=== PATIENT | male | born 1965 | race Caucasian/White ===

== ENCOUNTER 2020-08-19 22:33 | Inpatient (IN) | payer OTHER, SELFPAY ==
[2020-08-19 23:07] VITALS: BMI 37.7
[2020-08-19 23:11] VITALS: BP 140/67; PULSE 66; RESP 18; TEMP 37.2; O2SAT 96
[2020-08-20] MEDS: Multivitamin TABLET 1 TAB PO ×2 (00:52→22:49)
[2020-08-20] MEDS: LORazepam 1 MG TABLET PO (00:52)
[2020-08-20] MEDS: Folic Acid 1 MG TABLET PO ×2 (00:52→08:54)
[2020-08-20 04:06] VITALS: BMI 26.5
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
[2020-08-20 06:15] VITALS: BP 122/72; PULSE 67; RESP 16; TEMP 36.8; O2SAT 98
--- NOTE | 2020-08-20 07:00 | ECG_ITS ---
Test Reason : CHEST PAIN Blood Pressure : / mmHG Vent. Rate : 063 BPM Atrial Rate : 063 BPM P-R Int : 150 ms QRS Dur : 100 ms QT Int : 440 ms P-R-T Axes : 022 -10 077 degrees QTc Int : 450 ms Normal sinus rhythm Nonspecific ST and T wave abnormality Abnormal ECG No previous ECGs available Referred By: Donovan Villela Electronically Signed By:DESTINY SPRAGUE
[2020-08-20 08:54] VITALS: BP 122/72; PULSE 67
[2020-08-20] MEDS: lisinopriL 5 MG TABLET PO (08:54)
[2020-08-20] MEDS: DULoxetine HCl 30 MG CAPSULE.DR PO (08:54)
[2020-08-20] MEDS: Gabapentin 100 MG CAPSULE 200 MG PO ×3 (08:54→22:49)
[2020-08-20] MEDS: Tamsulosin HCL 0.4 MG CAPSULE PO ×2 (08:54→18:26)
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
[2020-08-20 09:27] VITALS: BP 122/72; PULSE 67
[2020-08-20] MEDS: Levothyroxine Sodium 150 MCG TABLET PO (09:27)
[2020-08-20] MEDS: Magnesium Oxide 400 MG TABLET PO ×2 (09:27→22:49)
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
--- NOTE | 2020-08-20 14:34 | PC.NURSE ---
Pt participated in [facility] screen on this date (version 7.1), scored 28/30, indicating cognition is within normal limits. MD pandya
[2020-08-20 18:00] VITALS: BP 117/58; PULSE 64; TEMP 36.6
[2020-08-21] MEDS: Levothyroxine Sodium 150 MCG TABLET PO (06:38)
[2020-08-21 07:00] VITALS: BP 117/58; PULSE 61; RESP 18; TEMP 37
[2020-08-21 08:57] LABS: Alanine Aminotransferase 21 U/L (0-40); Albumin Level 3.1 g/dL (3.5-5.0); Alkaline Phosphatase 112 U/L (39-117); Aspartate Amino Transferase 64 U/L (5-37); Bilirubin Direct 1.1 mg/dL (0.0-0.5); Total Protein 6.5 g/dL (6.5-8.0)
[2020-08-21 09:29] VITALS: BP 117/58; PULSE 61
[2020-08-21] MEDS: lisinopriL 5 MG TABLET PO (09:29)
[2020-08-21] MEDS: Multivitamin TABLET 1 TAB PO (09:30)
[2020-08-21] MEDS: Folic Acid 1 MG TABLET PO (09:30)
[2020-08-21] MEDS: Magnesium Oxide 400 MG TABLET PO ×2 (09:30→20:48)
[2020-08-21] MEDS: DULoxetine HCl 60 MG CAPSULE.DR PO (09:30)
[2020-08-21] MEDS: Gabapentin 100 MG CAPSULE 200 MG PO ×3 (09:30→20:48)
--- NOTE | 2020-08-21 12:23 | P.EN_ITS ---
Event Note Date of Service: 08/21/20
--- NOTE | 2020-08-21 12:23 | PM.EVENT ---
Event Note Date of Service: 08/21/20
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
[2020-08-21 18:00] VITALS: BP 117/83; TEMP 36.4
--- NOTE | 2020-08-21 18:49 | P.PNPSI_ITS ---
Subjective Subjective Date of Service: 08/21/20 Reason For Visit: Major Depressive Disorder Subjective Notes: Conditional Voluntary Interim History: Craig was brighter and more engaged today. He denied SI and stated his mood was better. He is more committed to stop drinking. He is unsure about using PHP. Medication Compliance: Yes Side effects from medications: No Attending Groups: Yes Review of Systems Acute medical concerns: No Medical Review of Systems: unchanged Mental Status Exam Mental Status Exam Patient Appearance: Well Grooomed Patient Orientation: Person, Place and Time Level of Consciousness: Awake Patient Behavior: Appropriate and Good Eye Contact Mood Description: Anxious and Sad Affect Description: Anxious, Flat and Sad Ability to Follow Directions: Good Speech Pattern: Clear and Spontaneous Speech Memory Description: Intact Hallucinations: None Delusions: Not Present Thought Process: Intact Thought Content: positive for Intact, positive for Circumstantial, positive for Perseveration, negative for Suicidal Ideation and negative for Homicidal Ideation Depressive Symptoms: Insomnia, Increased Irritability and Loss of Energy Judgement: Fair Diagnostics Vital Signs (24Hr): Vital Signs - 24 hr 08/21/20 07:00 08/21/20 09:29 Temperature 98.6 F Pulse Rate 61 61 Respiratory Rate 18 Blood Pressure 117/58 L 117/58 L Body Mass Index 26.5 Labs Labs: Laboratory Results - last 48 hr 08/21/20 07:58 Total Bilirubin 2.0 H Direct Bilirubin 1.1 H AST 64 H ALT 21 Alkaline Phosphatase 112 Total Protein 6.5 Albumin 3.1 L Medications Medications Current Medications Generic Name Dose Route Start Last Admin Trade Name Freq PRN Reason Stop Dose Admin Acetaminophen 650 mg 08/20/20 07:15 Acetaminophen 325 Mg Tablet PO Q6H PRN Headache/Pain Mild Scale (1-3) Al Hydroxide/Mg Hydroxide 30 ml 08/20/20 07:15 Magnesium Hydrox/Alum Hydrox 30 Ml Oral.Susp PO Q6H PRN Heartburn/Nausea Docusate Sodium 100 mg 08/20/20 07:18 Docusate Sodium 100 Mg Capsule PO DAILY PRN Constipation Duloxetine HCl 60 mg 08/21/20 09:00 08/21/20 09:30 Duloxetine Hcl 60 Mg Capsule.Dr PO 60 mg DAILY JOSE MARIA Administration Folic Acid 1 mg 08/19/20 23:45 08/21/20 09:30 Folic Acid 1 Mg Tablet PO 1 mg DAILY JOSE MARIA Administration Gabapentin 200 mg 08/20/20 09:00 08/21/20 14:39 Gabapentin 100 Mg Capsule PO 200 mg TID JOSE MARIA Administration Hydroxyzine HCl 25 mg 08/20/20 07:15 Hydroxyzine Hcl 25 Mg Tablet PO BEDTIME PRN Anxiety Levothyroxine Sodium 150 mcg 08/20/20 09:00 08/21/20 06:38 Levothyroxine Sodium 150 Mcg Tablet PO 150 mcg DAILY@0600 [facility] Administration Lisinopril 5 mg 08/20/20 09:00 08/21/20 09:29 Lisinopril 5 Mg Tablet PO 5 mg DAILY [facility] Administration Protocol Lorazepam 1 mg 08/19/20 23:29 08/20/20 00:52 Lorazepam 1 Mg Tablet PO 1 mg Q4H PRN Administration Alcohol Withdrawal Magnesium Hydroxide 30 ml 08/20/20 07:15 Milk Of Magnesia 30 Ml Oral.Susp PO DAILY PRN Constipation Magnesium Oxide 400 mg 08/20/20 09:00 08/21/20 09:30 Magnesium Oxide 400 Mg Tablet PO 400 mg BID JOSE MARIA Administration Multivitamins/Vitamin C 1 tab 08/20/20 23:23 08/21/20 09:30 Multivitamin Tablet PO 1 tab DAILY [facility] Administration Nadolol 40 mg 08/20/20 09:00 08/21/20 09:29 Nadolol 40 Mg Tablet PO 40 mg DAILY [facility] Administration Protocol Non-Formulary Medication 100 mg 08/20/20 07:18 Sildenafil [Viagra] PO DAILY PRN Erectile Dysfunction Tamsulosin HCl 0.4 mg 08/20/20 09:00 08/20/20 18:26 Tamsulosin Hcl 0.4 Mg Capsule PO 0.4 mg DAILY@1700 [facility] Administration Trazodone HCl 50 mg 08/20/20 07:15 Trazodone Hcl 50 Mg Tablet PO BEDTIME PRN Insomnia Allergies Allergies Allergy/AdvReac Type Severity Reaction Status Date / Time codeine Allergy Vomiting Verified 08/19/20 23:17 Assessment & Plan Assessment & Plan (1) Major depressive disorder, recurrent severe without psychotic features: Status: Acute Code(s): F33.2 - Major depressive disorder, recurrent severe without psychotic features Assessment and Plan: CT current treatment plan Greater than 50% of the session was spent on counseling and/or coordination of care Patient educated on: diagnosis, medication risk/benefits and substance abuse Informed Consent: further education needed Reason for contiued inpatient stay Substantial Risk for: rapid decompensation
[2020-08-21] MEDS: Tamsulosin HCL 0.4 MG CAPSULE PO (19:35)
--- NOTE | 2020-08-22 | MR_ITS ---
EXAMINATION: MR BRAIN WITHOUT CONTRAST CLINICAL INFORMATION: Falls. Episodes of confusion. COMPARISON: None available. TECHNIQUE: MRI of the brain was obtained using routine sequences without contrast. FINDINGS: No focal restricted diffusion is demonstrated to suggest acute or subacute cerebral ischemia. No evidence of acute or chronic hemorrhagic products on heme-sensitive imaging. Nonspecific scattered periventricular, deep white matter, and brainstem T2 FLAIR hyperintensities most commonly seen with moderate underlying microangiopathy proportional prominence of the ventricles and sulcal spaces without evidence of obstructive hydrocephalus. The posterior callosal angle is normal (130 degrees) when measured on a corrected coronal image, orthogonal to the anterior commissure-posterior commissure line. No abnormal mass effect. No midline shift. Normal appearance of the pituitary gland. The cerebellar tonsils are positioned at the level the foramen magnum. Normal arterial and venous vascular flow voids are present. Normal, homogeneous marrow signal. Mild mucosal thickening of the paranasal sinuses. No signal abnormalities within the mastoids. Bilateral lens extractions. MR/MR head/brain wo con IMPRESSION: 1. No acute intracranial abnormalities. 2. Nonspecific moderate chronic white matter disease and generalized cerebral volume loss.
--- NOTE | 2020-08-22 | EEG_ITS ---
This is a 16-channel EEG with an EKG lead. The patient is reported awake during the tracing. Background EEG rhythm is low to medium amplitude fast with no obvious asymmetry or paroxysmal tendency. Photic stimulation does not produce any significant abnormality. Hyperventilation is not performed. No sharp wave spikes or paroxysmal tendencies noted. Cardiac lead does not reveal any significant abnormality. IMPRESSION: Unremarkable EEG. MD JIMMY Grandaos/ROSALVA / [id number]
[2020-08-22 06:00] VITALS: BP 143/69; PULSE 62; TEMP 36.9
[2020-08-22] MEDS: Levothyroxine Sodium 150 MCG TABLET PO (06:38)
[2020-08-22 07:00] VITALS: BMI 29.3
[2020-08-22 08:27] VITALS: BP 143/69; PULSE 62
[2020-08-22] MEDS: Magnesium Oxide 400 MG TABLET PO ×2 (08:27→21:02)
[2020-08-22] MEDS: DULoxetine HCl 60 MG CAPSULE.DR PO (08:27)
[2020-08-22] MEDS: lisinopriL 5 MG TABLET PO (08:27)
[2020-08-22] MEDS: Multivitamin TABLET 1 TAB PO (08:27)
[2020-08-22] MEDS: Gabapentin 100 MG CAPSULE 200 MG PO ×3 (08:27→21:02)
[2020-08-22] MEDS: Folic Acid 1 MG TABLET PO (08:55)
--- NOTE | 2020-08-22 09:17 | P.PNPSI_ITS ---
Subjective Subjective Date of Service: 08/22/20 Reason For Visit: Major Depressive Disorder Subjective Notes: Conditional Voluntary Interim History: Craig is feeling significant improvement in his mood. He has no SI. He is hoping to go home tomorrow. He does not want to do PHP. QUINTON spoke with his who is in agreement with his going home. Neurology consult is appreciated. Will get MRI and EEG Medication Compliance: Yes Side effects from medications: No Attending Groups: Yes Review of Systems Acute medical concerns: No Medical Review of Systems: unchanged Mental Status Exam Mental Status Exam Patient Appearance: Well Grooomed Patient Orientation: Person, Place and Time Level of Consciousness: Awake Patient Behavior: Appropriate and Good Eye Contact Mood Description: Anxious and Sad Affect Description: Anxious, Flat and Sad Ability to Follow Directions: Good Speech Pattern: Clear and Spontaneous Speech Memory Description: Intact Hallucinations: None Delusions: Not Present Thought Process: Intact Thought Content: positive for Intact, positive for Circumstantial, positive for Perseveration, negative for Suicidal Ideation and negative for Homicidal Ideation Depressive Symptoms: Insomnia Judgement: Fair Diagnostics Vital Signs (24Hr): Vital Signs - 24 hr 08/21/20 09:29 08/21/20 18:00 08/22/20 06:00 Temperature 97.6 F 98.5 F Pulse Rate 61 62 Blood Pressure 117/58 L 117/83 143/69 H 08/22/20 08:27 Temperature Pulse Rate 62 Blood Pressure 143/69 H Body Mass Index 29.3 Labs Labs: Laboratory Results - last 48 hr 08/21/20 07:58 Total Bilirubin 2.0 H Direct Bilirubin 1.1 H AST 64 H ALT 21 Alkaline Phosphatase 112 Total Protein 6.5 Albumin 3.1 L Medications Medications Current Medications Generic Name Dose Route Start Last Admin Trade Name Freq PRN Reason Stop Dose Admin Acetaminophen 650 mg 08/20/20 07:15 Acetaminophen 325 Mg Tablet PO Q6H PRN Headache/Pain Mild Scale (1-3) Al Hydroxide/Mg Hydroxide 30 ml 08/20/20 07:15 Magnesium Hydrox/Alum Hydrox 30 Ml Oral.Susp PO Q6H PRN Heartburn/Nausea Docusate Sodium 100 mg 08/20/20 07:18 Docusate Sodium 100 Mg Capsule PO DAILY PRN Constipation Duloxetine HCl 60 mg 08/21/20 09:00 08/22/20 08:27 Duloxetine Hcl 60 Mg Capsule.Dr PO 60 mg DAILY JOSE MARIA Administration Folic Acid 1 mg 08/19/20 23:45 08/22/20 08:55 Folic Acid 1 Mg Tablet PO 1 mg DAILY JOSE MARIA Administration Gabapentin 200 mg 08/20/20 09:00 08/22/20 08:27 Gabapentin 100 Mg Capsule PO 200 mg TID JOSE MARIA Administration Hydroxyzine HCl 25 mg 08/20/20 07:15 Hydroxyzine Hcl 25 Mg Tablet PO BEDTIME PRN Anxiety Levothyroxine Sodium 150 mcg 08/20/20 09:00 08/22/20 06:38 Levothyroxine Sodium 150 Mcg Tablet PO 150 mcg DAILY@0600 [facility] Administration Lisinopril 5 mg 08/20/20 09:00 08/22/20 08:27 Lisinopril 5 Mg Tablet PO 5 mg DAILY [facility] Administration Protocol Lorazepam 1 mg 08/19/20 23:29 08/20/20 00:52 Lorazepam 1 Mg Tablet PO 1 mg Q4H PRN Administration Alcohol Withdrawal Magnesium Hydroxide 30 ml 08/20/20 07:15 Milk Of Magnesia 30 Ml Oral.Susp PO DAILY PRN Constipation Magnesium Oxide 400 mg 08/20/20 09:00 08/22/20 08:27 Magnesium Oxide 400 Mg Tablet PO 400 mg BID [facility] Administration Multivitamins/Vitamin C 1 tab 08/20/20 23:23 08/22/20 08:27 Multivitamin Tablet PO 1 tab DAILY [facility] Administration Nadolol 40 mg 08/20/20 09:00 08/22/20 08:27 Nadolol 40 Mg Tablet PO 40 mg DAILY [facility] Administration Protocol Non-Formulary Medication 100 mg 08/20/20 07:18 Sildenafil [Viagra] PO DAILY PRN Erectile Dysfunction Tamsulosin HCl 0.4 mg 08/20/20 09:00 08/21/20 19:35 Tamsulosin Hcl 0.4 Mg Capsule PO 0.4 mg DAILY@1700 [facility] Administration Trazodone HCl 50 mg 08/20/20 07:15 Trazodone Hcl 50 Mg Tablet PO BEDTIME PRN Insomnia Allergies Allergies Allergy/AdvReac Type Severity Reaction Status Date / Time codeine Allergy Vomiting Verified 08/19/20 23:17 Assessment & Plan Assessment & Plan (1) Major depressive disorder, recurrent severe without psychotic features: Status: Acute Code(s): F33.2 - Major depressive disorder, recurrent severe without psychotic features Assessment and Plan: CT current treatment plan. Anticipate DC tomorrow Greater than 50% of the session was spent on counseling and/or coordination of care Patient educated on: diagnosis, medication risk/benefits and substance abuse Informed Consent: understands Reason for contiued inpatient stay Substantial Risk for: rapid decompensation
[2020-08-22 17:51] VITALS: BP 155/81; PULSE 59; TEMP 36.9
[2020-08-22 18:00] VITALS: BP 155/81; PULSE 59; TEMP 36.9
[2020-08-22] MEDS: Tamsulosin HCL 0.4 MG CAPSULE PO (18:55)
[2020-08-23 05:55] VITALS: BP 144/78; PULSE 65; RESP 16; TEMP 36.6; O2SAT 97
[2020-08-23] MEDS: Levothyroxine Sodium 150 MCG TABLET PO (05:58)
[2020-08-23 08:30] VITALS: BP 144/78; PULSE 65
[2020-08-23] MEDS: Gabapentin 100 MG CAPSULE 200 MG PO (08:30)
[2020-08-23] MEDS: Folic Acid 1 MG TABLET PO (08:30)
[2020-08-23] MEDS: Magnesium Oxide 400 MG TABLET PO (08:30)
[2020-08-23] MEDS: DULoxetine HCl 60 MG CAPSULE.DR PO (08:30)
[2020-08-23] MEDS: Multivitamin TABLET 1 TAB PO (08:30)
[2020-08-23] MEDS: lisinopriL 5 MG TABLET PO (08:30)
--- NOTE | 2020-08-23 11:06 | PM.PSYDC ---
DS: Providers Provider Date of admission: 08/19/20 22:33 Date of discharge: 08/23/20 Primary care physician: Ender Acuna MD Attending physician on admission: Una Murray Consults: 08/20/20 07:00 Consult to Hospitalist Routine Consulting Provider: Hospitalist Reason for consultation: Hospital Transfer 08/20/20 13:41 Consult to Neurology Routine Consulting Provider: [facility] Reason for consultation: Frequent falls, memory impairment, by history Attending physician on discharge: Una Murray DS: Diagnosis Discharge Diagnosis (1) Major depressive disorder, recurrent severe without psychotic features: Status: Acute DS: Medications Discharge Medications Home Medications: Home Medications Medication Instructions Recorded Confirmed docusate sodium [Colace] 100 mg PO DAILY PRN 08/20/20 08/20/20 duloxetine [Cymbalta] 30 mg PO DAILY 08/20/20 08/20/20 folic acid [Folvite] 1 mg PO DAILY 08/20/20 08/20/20 gabapentin 200 mg PO TID 08/20/20 08/20/20 levothyroxine 150 mcg PO DAILY 08/20/20 08/20/20 lisinopril 5 mg PO DAILY 08/20/20 08/20/20 magnesium oxide 400 mg PO BID 08/20/20 08/20/20 multivitamin 1 tab PO DAILY 08/20/20 08/20/20 nadolol 40 mg PO DAILY 08/20/20 08/20/20 sildenafil [Viagra] 100 mg PO DAILY PRN 08/20/20 08/20/20 tamsulosin 0.4 mg PO DAILY 08/20/20 08/20/20 thiamine HCl (vitamin B1) 100 mg PO DAILY 08/20/20 08/20/20 Discharge Plan Discharge Patient Disposition: Home, Self-Care Referrals: Katya Bernal (therapist) [Other] - 08/26/20 3:00 pm (Telehealth appointment) Dr. Marks (psychiatrist) [Other] - 10/02/20 10:00 am (Telehealth appointment) Jyoti Crane (therapist) [Other] (Follow up to see if she is taking new clients) Ender Acuna MD [Primary Care Provider] - 08/27/20 3:00 pm (tele health via phone) Yaritza Whitley MD [Physician] - 09/03/20 12:10 pm (IN OFFICE.) Discharge Medications: New duloxetine 60 mg Capsule,Delayed Release(Dr/Ec) 60 mg PO DAILY Qty: 30 RF: 1 Continued thiamine HCl (vitamin B1) 100 mg Tablet 100 mg PO DAILY Qty: 30 RF: 1 multivitamin Tablet 1 tab PO DAILY Qty: 30 RF: 1 sildenafil [Viagra] 100 mg Tablet 100 mg PO DAILY PRN (Reason: Erectile Dysfunction) Qty: 30 RF: 1 tamsulosin 0.4 mg Capsule 0.4 mg PO DAILY Qty: 30 RF: 1 levothyroxine 150 mcg Tablet 150 mcg PO DAILY Qty: 30 RF: 1 docusate sodium [Colace] 100 mg Capsule 100 mg PO DAILY PRN (Reason: Constipation) Qty: 30 RF: 1 nadolol 40 mg Tablet 40 mg PO DAILY Qty: 30 RF: 1 folic acid 1 mg Tablet 1 mg PO DAILY Qty: 30 RF: 1 lisinopril 5 mg Tablet 5 mg PO DAILY Qty: 30 RF: 1 gabapentin 100 mg Capsule 200 mg PO TID Qty: 90 RF: 1 magnesium oxide 400 mg magnesium Tablet 400 mg PO BID Qty: 60 RF: 1 Discontinued duloxetine [Cymbalta] 30 mg Capsule,Delayed Release(Dr/Ec) 30 mg PO DAILY RF: 0 Discharge Orders: Discharge Order (Routine); Ordered 08/23/20 Ordered By: Una Murray Diet: advance to usual diet Activity on Discharge: As tolerated Stand Alone Forms: Community Support Discharge Date/Time: 08/23/20 12:34 Visit Report Forms: Patient Portal Discharge page Care Plan Goals: Decrease depression Remain sober Health Concerns: Depressed mood Alcohol use Plan of Treatment: Stay on your medication Go to your FU appointments Mental Status Exam Mental Status Exam Patient Appearance: Well Grooomed Patient Orientation: Person, Place and Time Level of Consciousness: Awake Patient Behavior: Appropriate and Good Eye Contact Mood Description: Anxious and Sad Affect Description: Anxious, Flat and Sad Ability to Follow Directions: Good Speech Pattern: Clear and Spontaneous Speech Memory Description: Intact Hallucinations: None Delusions: Not Present Thought Process: Intact Thought Content: positive for Intact, positive for Circumstantial, positive for Perseveration, negative for Suicidal Ideation and negative for Homicidal Ideation Depressive Symptoms: Insomnia Judgement: Fair Data Data Completed and Pending Completed studies during hospitalization [Text1]: 08/21/20 07:58 Total Bilirubin 2.0 H Direct Bilirubin 1.1 H AST 64 H ALT 21 Alkaline Phosphatase 112 Total Protein 6.5 Albumin 3.1 L Imaging Diagnostic Imaging Impressions Brain MRI 08/22/20 00:00 IMPRESSION: 1. No acute intracranial abnormalities. 2. Nonspecific moderate chronic white matter disease and generalized cerebral volume loss. DS: Summary Hospital Course Hospital Course: 55 yo white male transferred from [facility]. He was referred because of SI and S/P an OD. This is his first admission to and his second psychiatric admission. Craig was admitted to [facility] on 08/17/20 after making a suicide attempt with quantity 250 tablets of Tylenol 500 mg tabs with 3 glasses of wine. He reports that it was impulsive but that he had hoped he would . He felt that there was a perfect storm of stresses and he could not manage any more. Following the OD he was brought by ambulance to [facility] and then was admitted to telemetry at [facility]. When medically stable he was evaluated by [facility] and referred for admission. Craig cited family stress including 3 children with special needs ages 13 ( shaken baby syndrome ), 17 (cerebral palsy), and 19 (autism, non-verbal). The patient and 13 yo child made threatening statements toward each other. Craig denied intent and said statements were made out of frustration. I sleep with my door locked because I don't know what he'd do. He also cited work stress due to COVID-19 restrictions. In 2019 pt relapsed on ETOH after 10 yrs of sobriety due to work stress involving false accusations of sexual harassment. Reports drinking twice per week since, 4 drinks each time. He denies seizure hx and denies current withdrawal. He did not present with signs of withdrawal at time of assessment. He had been treated for ETOH withdrawal while inpatient at [facility] with Ativan. Pt denied current SI and stated that he was grateful to have survived. My doesn't deserve this. He denied AH/VH/HI. He did not present with signs of psychosis and was calm and cooperative. He has had one IPLOC in 2008 after divorce from first . Agreed to seek staff if having thoughts of SI/HI. He had been started on duloxetine and feels it is somewhat helpful. He is looking for assistance with depression and alcohol use. Craig responded to an increase in duloxetine and the support of the unit. He declined naltrexone but said he had no cravings for alcohol. He had no WD. He was interested in returning to a therapist that he has seen in the past, but did not want to use PHP. QUINTON consulted with his who agreed that he had made a lot of progress and was safe to go home. Status at Discharge Functional status at discharge: independent ambulation Overall status at discharge: patient is progressing back to baseline Time Spent with Patient Time attestation: Total time spent providing and/or coordinating discharge services:
== END 2020-08-23 12:34 | disposition home or self-care (01) | DRG 885 ==
PROVIDERS: Student in an Organized Health Care Education/Training Program; Admitting Provider Psychiatry & Neurology Psychiatry; PCP Internal Medicine; Visit Provider Psychiatry & Neurology Psychiatry
DX: F33.2 Major depressive disorder, recurrent severe without psychotic features (principal); R45.851 Suicidal ideations; E03.9 Hypothyroidism, unspecified; Z89.511 Acquired absence of right leg below knee; Z88.5 Allergy status to narcotic agent; Z79.890 Hormone replacement therapy; Z79.899 Other long term (current) drug therapy
CPT/HCPCS: 70551; 80076; 93005; 95816

== ENCOUNTER 2020-10-23 08:53 | Outpatient (REF) | payer BC, SELFPAY ==
[2020-10-23 10:55] LABS: MANUAL DIFF FLAG NO
[2020-10-23 11:04] LABS: INTERNATIONAL NORM RATIO 1.2 (0.9-1.1); Prothrombin Time 14.1 SEC (10.8-13.0)
[2020-10-23 11:06] LABS: Basophils Percent Auto 0.6 % (0-2); Eosinophils Absolute Auto 0.3 X10*3/uL (0.0-0.4); Eosinophils Percent Auto 4.1 % (0-4); Hematocrit 39.6 % (42-52); Imm Gran Abs Auto 0.02 X10*3/uL (0.00-0.03); Imm Gran Pct Auto 0.3 % (0.0-0.4); Lymphocytes Absolute Auto 1.1 X10*3/uL (1.2-4.9); Lymphocytes Percent Auto 18.2 % (20-40); Mean Corpuscular HGB Conc 32.8 g/dl (31.0-36.0); Mean Corpuscular Volume 103.7 fL (80-98); Mean Platelet Volume 12.2 fL (9.4-12.4); Monocytes Percent Auto 16.4 % (2-11); Neutrophils Absolute Auto 3.7 X10*3/uL (2.0-8.3); Neutrophils Percent Auto 60.4 % (45-73); Platelet Count 120 X10*3/uL (160-400); Red Blood Count 3.82 X10*6/uL (4.60-5.80); Red Cell Distribution Width 13.1 % (11.0-16.0); White Blood Count 6.2 X10*3/uL (4.8-10.8)
[2020-10-23 12:03] LABS: Alanine Aminotransferase 17 U/L (0-40); Albumin Level 3.6 g/dL (3.5-5.0); Alkaline Phosphatase 112 U/L (39-117); Anion Gap 11 (12-20); Aspartate Amino Transferase 49 U/L (5-37); Bilirubin Total 1.4 mg/dL (0.0-1.0); Blood Urea Nitrogen 12 mg/dL (9-16); Calcium 8.7 mg/dL (8.4-10.2); Carbon Dioxide 27 mmol/L (22-29); Chloride 104 mmol/L (96-108); Estimated Glomerular Filt Rate > 60; Glucose Random 93 mg/dL (60-115); Magnesium 1.9 mg/dL (1.6-2.6); Potassium 4.4 mmol/L (3.3-5.1); Sodium 138 mmol/L (135-145); Total Protein 7.7 g/dL (6.5-8.0)
[2020-10-23 12:18] LABS: Folate 9.2 ng/mL (> or = 4.0); Vitamin B12 491 pg/mL (200-900)
== END 2020-10-23 08:54 | disposition home or self-care (01) ==
LOC: HO.MANLDS 08:53
PROVIDERS: PCP Internal Medicine; Visit Provider Physician Assistant
DX: F10.10 Alcohol abuse, uncomplicated (principal)
CPT/HCPCS: 36415; 80053; 82607; 82746; 83735; 85025; 85610